=== PATIENT | female | born 1965 | race Caucasian/White ===

== ENCOUNTER → 2017-06-20 10:36 | Emergency (ER) | payer BC ==
[~2017-06-20 10:36] MED LIST: Acetaminophen TAB* 325 MG ONE; Acetaminophen TAB* 325 MG PO ONE; Amoxicillin/Clavulanate TAB* 875 MG PO ONE; Iohexol 300* (CONTRAST) 10 ML SDV IV ONE; NS 0.9% 1000 ML* 1,000 ML IV ONE; Ondansetron INJ* 2 MG/ML VIAL IV ONE; Ondansetron INJ* 2 MG/ML VIAL ONE
[2017-06-20 12:11] LABS: Hematocrit 41 % (35-47); Mean Corpuscular HGB Conc 34 g/dl (31-36); Mean Corpuscular Hemoglobin 30 pg (27-31); Mean Corpuscular Volume 87 fL (80-97); Mean Platelet Volume 8 um3 (7.4-10.4); Red Blood Count 4.67 10^6/ul (4.0-5.4); Red Cell Distribution Width 13 % (10.5-15)
[2017-06-20 12:38] LABS: Albumin 3.8 g/dL (3.2-5.2); BUN/Creatinine Ratio 23.3 (8-20); Calcium 8.8 mg/dL (8.6-10.3); EGFR African American 107.7 (>60); EGFR Non-African American 83.7 (>60); Globulin 2.9 g/dL (2-4); Magnesium 1.9 mg/dL (1.9-2.7); Potassium 3.7 mmol/L (3.5-5.0); Total Bilirubin 0.6 mg/dL (0.2-1.0); Total Protein 6.7 g/dL (6.4-8.9)
--- NOTE | 2017-06-20 13:35 | ED ---
Clayton Farmer Alfonso, scribed for Didi Jackson MD on 06/20/17 at 1204 . Abdominal Pain/Female - HPI Summary HPI Summary: This patient is a 52 year old F presenting to [facility] with a chief complaint of sharp LLQ abdominal pain since yesterday. The abdominal pain is better today. The patient rates the pain 5/10 in severity. Symptoms aggravated by movement, touch, and ambulation. Patient reports nausea, no vomiting. Report loss of appetite. Patient denies fever, constipation, vomiting, vaginal discharge, dysuria, and hematuria. Her last BM was formed without blood or melena yesterday. Conclusions from her colonoscopy on 01/17/17 reveal Two polyps ( removed), minimal diffuse diverticulosis, otherwise normal colonoscopy into the terminal ileum. Pt sates had an ovarian cyst with ovary resection - unknown which side Pt has has colon cancer polypectomy several years ago Patients medication reviewed this visit. - History of Current Complaint Chief Complaint: EDAbdPain Stated Complaint: LT ABD PAIN Time Seen by Provider: 06/20/17 11:42 Hx Obtained From: Patient, Medical Records Hx Last Menstrual Period: 12/27 Severity Initially: Mild Severity Currently: Moderate Pain Intensity: 5 Pain Scale Used: 0-10 Numeric Location: Discrete At: LLQ Radiates: No Character: Sharp, Other: - pressure Aggravating Factor(s): Movement Alleviating Factor(s): Nothing Associated Signs and Symptoms: Positive: Decreased Appetite, Nausea. Negative: Fever, Back Pain, Blood in Stool, Urinary Symptoms, Vomiting Allergies/Adverse Reactions: Allergies Allergy/AdvReac Type Severity Reaction Status Date / Time No Known Allergies Allergy Verified 12/24/13 08:44 PMH/Surg Hx/FS Hx/Imm Hx Previously Healthy: Yes Endocrine/Hematology History: Reports: Hx Thyroid Disease Denies: Hx Diabetes Cardiovascular History: Denies: Hx Congestive Heart Failure, Hx Hypertension History: Denies: Hx Dialysis, Hx Renal Disease - Cancer History Cancer Type, Location and Year: COLON CA-colon polyps removed age of 38 Hx Chemotherapy: No Hx Radiation Therapy: No - Surgical History Surgery Procedure, Year, and Place: RIGHT OOPHRECTOMY AND OVARIAN CYST REMOVAL Infectious Disease History: No Infectious Disease History: Denies: Traveled Outside the [place] in Last 30 Days - Family History Known Family History: Positive: Other - [place] - Social History Lives: With Family Alcohol Use: recovery x 7 years Substance Use Type: Reports: None 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 Smoking Status (MU): Light Every Day Tobacco Smoker Type: Cigarettes Amount Used/How Often: 3/4 PPD Length of Time of Smoking/Using Tobacco: 30 YEARS Have You Smoked in the Last Year: Yes Review of Systems Constitutional: Negative Cardiovascular: Negative Respiratory: Negative Positive: Abdominal Pain, Nausea Genitourinary: Negative Musculoskeletal: Negative Skin: Negative Neurological: Negative Psychological: Normal All Other Systems Reviewed And Are Negative: Yes Physical Exam Triage Information Reviewed: Yes Vital Signs On Initial Exam: Initial Vitals Temp Pulse Resp BP Pulse Ox 97.6 F 60 16 119/92 98 06/20/17 10:43 06/20/17 10:43 06/20/17 10:43 06/20/17 10:43 06/20/17 10:43 Vital Signs Reviewed: Yes Appearance: Positive: Well-Appearing, Pain Distress - discomfort with movement and palpatiion Skin: Positive: Warm, Skin Color Reflects Adequate Perfusion, Dry Eyes: Positive: Normal ENT: Positive: Hearing grossly normal Neck: Positive: Supple, Nontender, No Lymphadenopathy Respiratory/Lung Sounds: Positive: Clear to Auscultation, Breath Sounds Present , Decreased Breath Sounds Cardiovascular: Positive: Normal, RRR. Negative: Murmur Abdomen Description: Negative: Nontender, No Organomegaly, Soft Bowel Sounds: Positive: Present Musculoskeletal: Positive: Normal Neurological: Positive: Normal, Sensory/Motor Intact, Alert, Oriented to Person Place, Time Psychiatric: Positive: Normal AVPU Assessment: Alert - + TTP LLQ - no guarding, no rebound abd soft + BS Diagnostics - Vital Signs Vital Signs Temp Pulse Resp BP Pulse Ox 06/20/17 10:43 97.6 F 60 16 119/92 98 - Laboratory Lab Results: Lab Results 06/20/17 06/20/17 06/20/17 Range/Units 12:00 12:00 12:00 WBC 10.0 (3.5-10.8) 10^3/ul RBC 4.67 (4.0-5.4) 10^6/ul Hgb 14.0 (12.0-16.0) g/dl Hct 41 (35-47) % MCV 87 (80-97) fL MCH 30 (27-31) pg MCHC 34 (31-36) g/dl RDW 13 (10.5-15) % Plt Count 214 (150-450) 10^3/ul MPV 8 (7.4-10.4) um3 Neut % (Auto) 56.6 (38-83) % Lymph % (Auto) 29.3 (25-47) % Jack % (Auto) 9.9 H (1-9) % Eos % (Auto) 3.0 (0-6) % Baso % (Auto) 1.2 (0-2) % Absolute Neuts (auto) 5.7 (1.5-7.7) 10^3/ul Absolute Lymphs (auto) 2.9 (1.0-4.8) 10^3/ul Absolute Monos (auto) 1.0 H (0-0.8) 10^3/ul Absolute Eos (auto) 0.3 (0-0.6) 10^3/ul Absolute Basos (auto) 0.1 (0-0.2) 10^3/ul Absolute Nucleated RBC 0.01 10^3/ul Nucleated RBC % 0.1 Sodium 136 (133-145) mmol/L Potassium 3.7 (3.5-5.0) mmol/L Chloride 104 (101-111) mmol/L Carbon Dioxide 26 (22-32) mmol/L Anion Gap 6 (2-11) mmol/L BUN 17 (6-24) mg/dL Creatinine 0.73 (0.51-0.95) mg/dL Est GFR ( Amer) 107.7 (>60) Est GFR (Non-Af Amer) 83.7 (>60) BUN/Creatinine Ratio 23.3 H (8-20) Glucose 103 H (70-100) mg/dL Lactic Acid 1.6 (0.5-2.0) mmol/L Calcium 8.8 (8.6-10.3) mg/dL Magnesium 1.9 (1.9-2.7) mg/dL Total Bilirubin 0.60 (0.2-1.0) mg/dL AST 16 (13-39) U/L ALT 16 (7-52) U/L Alkaline Phosphatase 87 (34-104) U/L Total Protein 6.7 (6.4-8.9) g/dL Albumin 3.8 (3.2-5.2) g/dL Globulin 2.9 (2-4) g/dL Albumin/Globulin Ratio 1.3 (1-3) Lipase 27 (11.0-82.0) U/L Result Diagrams: 06/20/17 12:00 06/20/17 12:00 Lab Statement: Any lab studies that have been ordered have been reviewed, and results considered in the medical decision making process. - CT A/P CT Interpretation Completed By: Radiologist - INTERSTITIAL STRANDING ADJACENT TO THE PROXIMAL SIGMOID COLON MOST CONSISTENT WITH EPIPLOIC APPENDAGITIS LESS LIKELY DIVERTICULITIS. ED physician has reviewed this radiology report and agrees. Re-Evaluation - Re-Evaluation First Eval Re-Evaluation Time: 14:17 Change: Improved Comment: Nasuea controlled. She declines offer for pain medications at this time. She is drinking the PO contrast. Second Eval Re-Evaluation Time: 16:28 Comment: d/w surgery CT finding - no acute management. reviewed CT with patient and labs. Will culture urine. start Augmentin. pt will schedule f/u with PCP. return precautions discussed. motrin/apap. Pt comfortable and in agreement with plan Abdominal Pain Fem Course/Dx - Course Course Of Treatment: Pt presents wtih increased LLQ x 24 hours. Pain reproducible with touch and movement. Pt with diverticulosis on colonoscopy 2016. No h/o diverticulitis. Will check lab. urine. IVF. Pt declined analgesia. will give antiemetic CT scan - Diagnoses Provider Diagnoses: Epiploic appendagitis, UTI (urinary tract infection) Discharge - Discharge Plan Condition: Stable Disposition: HOME Prescriptions: Amoxicillin/Clavulanate TAB* [Augmentin TAB 875*] 875 mg PO BID #14 tab Patient Education Materials: Acute Abdominal Pain (ED) Referrals: Iman Candelaria MD [Primary Care Provider] - Additional Instructions: The CT scan today revealed you have epiploic appendagitis - this is caused by a small area of fat that did not have good blood flow - this is not dangerous and does not need any treatment other than pain control Your urine results suggests a bladder infection You have been started on antibiotics - take until gone - will likely cause diarrhea - okay to alternate ibuprofen (advil, motrin) and tylenol every 3hours as needed for pain. Take with food. Contact your doctor to schedule a follow-up appointment. call your doctor or return for fevers,vomiting, uncontrolled pain or other questions or concerns The documentation as recorded by the Clayton anne Alfonso accurately reflects the service I personally performed and the decisions made by me, Didi Jackson MD.
[2017-06-20 13:51] LABS: Urine Bacteria Absent (Absent); Urine Bilirubin Negative (Negative); Urine Glucose Negative (Negative); Urine Nitrite Negative (Negative)
[2017-06-20 15:25] VITALS: BP 120/87
--- NOTE | 2017-06-20 15:39 | RAD ---
INDICATION: Left lower quadrant abdominal pain. COMPARISON: Comparison is made with a prior CT of the abdomen and pelvis from January 10, 2015. TECHNIQUE: A CT scan of the abdomen and pelvis was performed with intravenous and oral contrast following intravenous injection of 88 ml of Omnipaque 300 nonionic contrast. Contiguous axial sections were obtained from the lung bases through the symphysis pubis. Images were reconstructed in the coronal and sagittal planes. FINDINGS: The lung bases are clear. No pleural effusion is present. The liver is normal in size. No significant focal hepatic abnormality is seen. No calcific gallstones are noted. The pancreas appears to be within normal limits. The spleen is normal in size there are several small subcentimeter hypodense splenic lesions which appear to be present on the prior study. The kidneys and adrenal glands are normal in size. No hydronephrosis is seen. No significant focal renal abnormality is seen. The aorta is normal in caliber and demonstrates homogeneous contrast opacification. No significant enlarged retroperitoneal lymph nodes are seen. The stomach, small and large bowel appear nondistended. The appendix is not visualized. There is moderate sigmoid diverticulosis. Adjacent to the anterior aspect of the proximal sigmoid colon there is focal stranding in the mesenteric fat without bowel wall thickening suggestive of epiploic appendagitis less likely diverticulitis. No wall thickening is present. The uterus is anteverted and normal in size. No free intraperitoneal air or fluid is seen. No significant focal osseous abnormality is seen. IMPRESSION: INTERSTITIAL STRANDING ADJACENT TO THE PROXIMAL SIGMOID COLON MOST CONSISTENT WITH EPIPLOIC APPENDAGITIS LESS LIKELY DIVERTICULITIS.
== END | disposition home or self-care (01) ==
LOC: ED 10:36
DX: R10.32 Left lower quadrant pain (principal); K63.89 Other specified diseases of intestine
CPT/HCPCS: 36415; 74177; 80053; 81003; 81015; 83605; 83690; 83735; 85025; 87086; 96374; 96376; 99282; A9270-GY; J2405; Q9967

== ENCOUNTER 2018-05-04 14:17 | Emergency (ER) | payer BC ==
--- NOTE | 2018-05-04 15:02 | ED ---
Substance Abuse/Use - HPI Summary HPI Summary: The pt is a 53 y/o female presenting to the [facility] c/o possible accidental ibuprofen overdose. Pt is coming from Dr. Candelaria's office where pt told Dr. Candelaria that since 05/02/18 she has been taking over the counter ibuprofen 800mg every four hours for low back pain, on the advice of a friend, such that she has taken 7600mg in 32 hrs. Pt relayed to Dr[address] Candelaria that she had tinnitus from this. Dr. Candelaria contacted [facility] poison control, and poison control advised that pt should come to the ED to be evaluated where she could have labs and a period of observation. Pt is not suicidal or homicidal, and has no psychiatric hx. She took 800mg of Ibuprofen starting 10:30am 2 days ago for back pain and took the last 4 pills at 17:30 yesterday. The non radiating back pain is intermittent and is currently rated 0/10 in intensity. She notes LOCK on L tenriism, numbness and ringing in the ears, nausea, dizziness, fatigue and forgetfulness but denies recent back injury, LE numbness and tingling, blurry vision, diplopia, and LE pain. Pt has no fever and no incontinence, and has had no spinal injections. Home Medications Medication Instructions Recorded Confirmed Type Levothyroxine TAB* [Synthroid TAB*] 125 mcg PO DAILY 05/04/18 05/04/18 History Simvastatin TAB(NF) [Zocor(NF)] 20 mg PO DAILY 05/04/18 05/04/18 History Initial Vital Signs Temp 98.0 F 05/04/18 14:23 Pulse 74 05/04/18 14:23 Resp 18 05/04/18 14:23 BP 139/98 05/04/18 14:23 Pulse Ox 99 05/04/18 14:23 - History Of Current Complaint Chief Complaint: EDOverdose Stated Complaint: POSS MEDICATION OD Hx Obtained From: Patient, Other: - Dr. Candelaria, [facility] poison control center ?: No Onset/Duration of Drug/ETOH Abuse: Days - 2 days Ingestion History: Type/Name Of Drug - ibuprofen, OTC, Amount Ingested - 7600mg in 32 hrs, Approximate Time Of Ingestion - last dose 05/03/18 at 1730pm Overdose Characteristics: Oral Severity Initially: Mild Severity Currently: Moderate Character: Other - physical symptoms, LOCK, tinnitus, nausea Aggravating Factor(s): Other - advice from a friend to try ibuprofen 800mg q 4 hrs for pain Alleviating Factor(s): Nothing Associated Signs And Symptoms: Nausea, Unintentional OTC, Other: - LOCK at theL tenriism, numbness and " ringing" in the ears, dizziness, forgetfulness, - Allergies/Home Medications Allergies/Adverse Reactions: Allergies Allergy/AdvReac Type Severity Reaction Status Date / Time No Known Allergies Allergy Verified 05/04/18 14:29 Home Medications: Home Medications Levothyroxine TAB* [Synthroid 125 MCG TAB*] 125 mcg PO DAILY 05/04/18 [History Confirmed 05/04/18] Simvastatin TAB(NF) [Zocor 20 MG (NF)] 20 mg PO DAILY 05/04/18 [History Confirmed 05/04/18] PMH/Surg Hx/FS Hx/Imm Hx Previously Healthy: No Endocrine/Hematology History: Reports: Hx Thyroid Disease Denies: Hx Diabetes Cardiovascular History: Denies: Hx Congestive Heart Failure, Hx Hypertension History: Denies: Hx Dialysis, Hx Renal Disease Musculoskeletal History: Reports: Other Musculoskeletal History - low back pain , no prior hx back pain - Cancer History Cancer Type, Location and Year: COLON CA-colon polyps removed age of 38 Hx Chemotherapy: No Hx Radiation Therapy: No - Surgical History Surgery Procedure, Year, and Place: RIGHT OOPHRECTOMY AND OVARIAN CYST REMOVAL Infectious Disease History: No Infectious Disease History: Denies: Traveled Outside the [place] in Last 30 Days - Family History Known Family History: Positive: Other - [place] - Social History Occupation: Employed Full-time - works for [employer], does not want to take narcotics Lives: Alone Alcohol Use: None Substance Use Type: Reports: None 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 Smoking Status (MU): Light Every Day Tobacco Smoker Type: Cigarettes Amount Used/How Often: 3/4 PPD Length of Time of Smoking/Using Tobacco: 30 YEARS Have You Smoked in the Last Year: Yes Review of Systems Constitutional: Other - Positive: Dizziness, forgetfulness Positive: Fatigue Negative: Blurred Vision, Diplopia Positive: Other - Positive: numbness and "ringing" in the ears Cardiovascular: Negative Respiratory: Negative Positive: Nausea Musculoskeletal: Negative - LE pain and numbness Positive: Other - low back pain Skin: Negative Positive: Headache Psychological: Normal All Other Systems Reviewed And Are Negative: Yes Physical Exam - Summary Physical Exam Summary: Appearance: Well-appearing, moderate pain distress, well-nourished Skin: Warm, color reflects adequate perfusion, dry Head: Normal Head/Face inspection, atraumatic Eyes: Conjunctiva clear ENT: Normal inspection, TM's clear, pharynx clear Neck: Supple, no nodes, no JVD Respiratory: Lungs clear, normal breath sounds, no respiratory distress Cardio: RRR, No murmur, pulses normal, brisk capillary refill Abdomen: Soft, nontender Bowel sounds: Present Musculoskeletal: Strength Intact/ROM intact, no calf tenderness, no edema. Psychological: Normal, not suicidal or homicidal Neuro: A&O x3, CN II-XII intact, motor function 5/5, sensation intact, cerebellar normal Triage Information Reviewed: Yes Vital Signs On Initial Exam: Initial Vitals Temp Pulse Resp BP Pulse Ox 98.0 F 74 18 139/98 99 05/04/18 14:23 05/04/18 14:23 05/04/18 14:23 05/04/18 14:23 05/04/18 14:23 Vital Signs Reviewed: Yes Diagnostics - Vital Signs Vital Signs Temp Pulse Resp BP Pulse Ox 05/04/18 14:43 62 12 156/100 100 05/04/18 14:42 66 99 05/04/18 14:23 98.0 F 74 18 139/98 99 - Laboratory Result Diagrams: 05/04/18 15:04 05/04/18 15:04 Lab Statement: Any lab studies that have been ordered have been reviewed, and results considered in the medical decision making process. - Radiology CXR Radiology Interpretation Completed By: Radiologist - IMPRESSION: No radiographic evidence for acute cardiopulmonary abnormality on this single AP view chest x-ray. The ED physician has reviewed this radiology report. - CT Lumbar CT CT Interpretation Completed By: Radiologist - IMPRESSION: 1. NO EVIDENCE FOR FRACTURE. 2. MILD TO MODERATE LUMBAR SPONDYLOSIS. The ED physician has reviewed this radiology report. Brain CT CT Interpretation Completed By: Radiologist - IMPRESSION: Normal CT of the brain. The Ed physician has reviewed this radiology report. - EKG 1455 Cardiac Rate: Bradycardia EKG Rhythm: Sinus Bradycardia ST Segment: Non-Specific Ectopy: None EKG Interpretation: nl AVIVCT, nl QTc no acute changes EKG Comparison: Other - no prior to compare Re-Evaluation - Re-Evaluation First Eval Re-Evaluation Time: 17:36 Change: Improved - Discussed the CT and lab results with the pt and recommended that she sees a physical therapist. Poison control has closed the case for any toxicity concern. The pt is ready to go home. Vitals: BP= 157/100; O2 Sat= 100 ; Pulse = 67 Course/Dx - Course Course Of Treatment: 53 yo F with accidental overdose of ibuprofen based on advice from a friend, for treatment of back pain, presented to Dr. Candelaria's office with symptoms including tinnitus. Dr. Candelaria spoke with poison control who recommended that if sxs included tinnitus, pt needed labs and observation to evaluate for toxicity of unintentional overdose. Pt's sxs included LOCK, and HTN, and with ibuprofen interference with platelets, CT brain was done to eval for poss intracerebral bleed or stroke. CT brain was normal. The back pain pt has is atraumatic and new for pt, so started with imaging by CT of her LS spine which shows spondylosis and degenerative changes. Pt does not have "red flag" signs of back pain such as cauda equina or epidural abscess so emergency MRI was not ordered. Labs showed no other evidence of ingestion, and renal function is normal. EKG showed normal QRS and QTc. Poison control closed case after observation, CT's and labs. Pt is advised maximum dose of ibuprofen is 800mg q6 and that this can be done only with food and for a short time. Pt is given a prescription for flexeril to try with ibuprofen and acetaminophen for pain. Pt will try some non medication therapies for her back pain, such as physical therapy and she will have definite follow up with Dr. Candelaria. - Diagnoses Differential Diagnosis/HQI/PQRI: Positive: Other - accidental overdose Provider Diagnoses: Accidental medication overdose, Adverse effects of medication, Spondylosis, Low back pain, Elevated BP without diagnosis of hypertension Discharge - Sign-Out/Discharge Documenting (check all that apply): Patient Departure - DC - Discharge Plan Condition: Stable Disposition: HOME Prescriptions: Cyclobenzaprine TAB* [Flexeril 10 MG TAB*] 10 mg PO TID PRN #30 tab PRN Reason: Pain Ibuprofen TAB* [Motrin TAB* 800 MG] 800 mg PO Q6H #20 tab Patient Education Materials: Hypothyroidism (ED), Acute Low Back Pain (ED) Referrals: Iman Candelaria MD [Primary Care Provider] - 2 Days Additional Instructions: You may take acetaminophen 1 gm ( 2 x 500mg) four times a day for pain. You may alternate this with ibuprofen. The maximum dose of ibuprofen is 800mg four times a day. Do not take additional over the counter naproxyn, advil, motrin if you are taking prescription ibuprofen. We prescribed cyclobenzaprine which is a muscle relaxant. You may take it three times a day as directed. Your labs showed that your TSH level was high, which may mean you are hypothyroid. You should talk this over with Dr. Candelaria, whether to increase your thyroid. We have given you a copy of your labs and CT scans and urine and xrays done today. Have definite follow up with Dr. Candelaria in the next 2-3 days. Return to the ER if you have new or worsening symptoms. - Billing Disposition and Condition Condition: STABLE Disposition: Home - Attestation Statements Document Initiated by Sharmila: Yes Documenting Scribe: Enedina Valencia Provider For Whom Sharmila is Documenting (Include Credential): Dr. Stephanie Joshua MD Scribe Attestation: Enedina Farmer scribed for Dr. Stephanie Joshua MD on 05/07/18 at 1233. Scribe Documentation Reviewed: Yes Provider Attestation: The documentation as recorded by the Enedina anne accurately reflects the service I personally performed and the decisions made by , Dr. Stephanie Joshua MD
[2018-05-04 15:13] LABS: ABS Basophils 0.1 10^3/ul (0-0.2); ABS Eosinophils 0.3 10^3/ul (0-0.6); ABS Lymphocytes 3.7 10^3/ul (1.0-4.8); ABS Neutrophils 5.5 10^3/ul (1.5-7.7); ABS Nucleated RBC 0 10^3/ul; Hematocrit 40 % (35-47); Hemoglobin 14.1 g/dl (12.0-16.0); Lymphocyte % 35.1 % (25-47); Mean Corpuscular HGB Conc 35 g/dl (31-36); Mean Corpuscular Hemoglobin 31 pg (27-31); Mean Corpuscular Volume 89 fL (80-97); Mean Platelet Volume 7.9 um3 (7.4-10.4); Nucleated Red Blood Cells % 0.3; Platelet Count 253 10^3/ul (150-450); Red Cell Distribution Width 13 % (10.5-15); White Blood Count 10.6 10^3/ul (3.5-10.8)
--- NOTE | 2018-05-04 15:27 | RAD ---
INDICATION: Headache and confusion COMPARISON: None. TECHNIQUE: Contiguous axial sections of the brain were obtained from the skull base to the vertex without contrast. FINDINGS: The ventricles, cisterns and sulci are within normal limits. The hall-white matter differentiation is adequately maintained and there is no sulcal effacement. No significant focal abnormality or mass effect is present. There is no evidence for intracranial hemorrhage. No significant focal osseous abnormality is present. The visualized portion of the paranasal sinuses appear clear. The mastoid air cells are well aerated bilaterally. IMPRESSION: Normal CT of the brain.
--- NOTE | 2018-05-04 15:35 | RAD ---
INDICATION: Low back pain. COMPARISON: There are no relevant prior studies available for comparison. TECHNIQUE: Contiguous axial sections were obtained beginning above the T12 vertebra and continuing through the L5-S1 disc space. Images were reconstructed in the sagittal and coronal planes. FINDINGS: VERTEBRA: The vertebra are in normal alignment. No fracture is seen. L1-L2: There is no evidence for significant spinal canal or neural foraminal narrowing. L2-L3: There is a mild broad-based disc bulge. There is mild spinal canal narrowing. There is mild neural foraminal narrowing on the left side. L3-L4: There is a mild broad-based disc bulge. There is mild spinal canal and mild bilateral neural foraminal narrowing. L4-L5: There is a mild broad-based disc bulge and mild to moderate hypertrophic changes within the facet joints. There is mild to moderate spinal canal narrowing. Neural foramen appear patent on both sides. L5-S1: There is a minimal broad-based disc bulge and moderate hypertrophic changes within the facet joints. No spinal canal or neural foraminal narrowing is seen. IMPRESSION: 1. NO EVIDENCE FOR FRACTURE. 2. MILD TO MODERATE LUMBAR SPONDYLOSIS.
[2018-05-04 15:41] LABS: EGFR Non-African American 70.9 (>60)
--- NOTE | 2018-05-04 15:58 | RAD ---
INDICATION: "Overdose" COMPARISON: None. TECHNIQUE: Single AP view of the chest was obtained. FINDINGS: The heart and mediastinum exhibit normal size and contour. The lungs are grossly clear. There is no evidence of a large pleural effusion. Visualized bones are normal for the patient's age. IMPRESSION: No radiographic evidence for acute cardiopulmonary abnormality on this single AP view chest x-ray.
[2018-05-04 16:05] LABS: Urine Appearance Clear; Urine Blood Negative (Negative); Urine Color Yellow; Urine Ketones Negative (Negative); Urine Protein Negative (Negative); Urine Red Blood Cell Trace(0-2/hpf) (Absent); Urine Specific Gravity 1.015 (1.010-1.030); Urine Urobilinogen Negative (Negative); Urine White Blood Cell 1+(6-10/hpf) (Absent)
[2018-05-04 17:53] VITALS: BP 124/96
== END 2018-05-04 18:09 | disposition home or self-care (01) ==
LOC: ED 14:17
DX: T39.311A Poisoning by propionic acid derivatives, accidental (unintentional), initial encounter (principal); M47.9 Spondylosis, unspecified; R03.0 Elevated blood-pressure reading, without diagnosis of hypertension; Y92.9 Unspecified place or not applicable
CPT/HCPCS: 36415; 70450; 71045; 72131; 80053; 80307; 80320; 80329; 81003; 81015; 82550; 83605; 84443; 85025; 87086; 93005; 99283; G0480

== ENCOUNTER → 2018-12-24 17:31 | Emergency (ER) | payer BC ==
[~2018-12-24 17:31] MED LIST changes: -Acetaminophen TAB* 325 MG ONE; -Acetaminophen TAB* 325 MG PO ONE; -Amoxicillin/Clavulanate TAB* 875 MG PO ONE; +Aspirin 81 mg CHEW TAB* 81 MG TAB.CHEW PO ONE; -Iohexol 300* (CONTRAST) 10 ML SDV IV ONE; -NS 0.9% 1000 ML* 1,000 ML IV ONE; +Nitroglycerin TAB 0.4 MG* 0.4 MG TAB SL ONE; -Ondansetron INJ* 2 MG/ML VIAL IV ONE; -Ondansetron INJ* 2 MG/ML VIAL ONE
--- NOTE | 2018-12-24 18:46 | ED ---
HPI Chest Pain - HPI Summary HPI Summary: A 53 y/o F presents to ED with c/o constant non-radiating, L-sided CP onset two days ago and still present. She describes the pain as "clenching," deep and tightness. She says it feels like anxiety "but without the other symptoms." She thinks it may be a reaction to Wellbutrin. Associated sx: mild SOB. She denies jaw pain, UE pain, shoulder pain, cough, pedal edema. She exercises every morning and has gone to work this week. Denies HTN. No aspirin today. Smoker, no ETOH. - History of Current Complaint Chief Complaint: EDChestPainROMI Time Seen by Provider: 12/24/18 18:16 Hx Obtained From: Patient Hx Last Menstrual Period: 12/27 Onset/Duration: Started Days Ago, Atraumatic, Still Present Timing: Constant Initial Severity: Moderate Current Severity: Mild Pain Intensity: 0 Pain Scale Used: 0-10 Numeric Chest Pain Location: Mid Sternal, Left Anterior Chest Pain Radiates: No Character: Tightness, Other: - deep, clenching Associated Signs and Symptoms: Positive: Shortness of Breath - mild, Other: - neg: jaw pain, UE pain, shoulder pain, cough, pedal edema. - Allergy/Home Medications Allergies/Adverse Reactions: Allergies Allergy/AdvReac Type Severity Reaction Status Date / Time No Known Allergies Allergy Verified 12/24/18 17:58 Home Medications: Home Medications Bupropion XL* [Wellbutrin XL *] 150 mg PO DAILY 12/24/18 [History Confirmed 08/03] PMH/Surg Hx/FS Hx/Imm Hx Previously Healthy: No Endocrine/Hematology History: Reports: Hx Thyroid Disease Denies: Hx Diabetes Cardiovascular History: Denies: Hx Congestive Heart Failure, Hx Hypertension History: Denies: Hx Dialysis, Hx Renal Disease Musculoskeletal History: Reports: Other Musculoskeletal History - low back pain , no prior hx back pain - Cancer History Cancer Type, Location and Year: COLON CA-colon polyps removed age of 38 Hx Chemotherapy: No Hx Radiation Therapy: No - Surgical History Surgery Procedure, Year, and Place: RIGHT OOPHRECTOMY AND OVARIAN CYST REMOVAL Infectious Disease History: No Infectious Disease History: Denies: Traveled Outside the [place] in Last 30 Days - Family History Known Family History: Positive: Other - CA Negative: Cardiac Disease Family History: pos: stroke - Social History Occupation: Employed Full-time Lives: With Family Alcohol Use: None Hx Substance Use: No Substance Use Type: Reports: None 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 Negative: Cough Negative: Abdominal Pain, Vomiting, Nausea Negative: dysuria, hematuria Negative: Myalgia, Edema, Other - neg: jaw pain Negative: Rash Neurological: Other - neg: dizziness All Other Systems Reviewed And Are Negative: Yes Physical Exam - Summary Physical Exam Summary: Constitutional: Well-developed, Well-nourished, Alert. (-) Distressed Skin: Warm, Dry HENT: Normocephalic; Atraumatic Eyes: Conjunctiva normal Neck: Musculoskeletal ROM normal neck. (-) JVD, (-) Stridor, (-) Tracheal deviation Cardio: Rhythm regular, rate normal, Heart sounds normal; Intact distal pulses; The pedal pulses are 2+ and symmetric. Radial pulses are 2+ and symmetric. (-) Murmur Pulmonary/Chest wall: Effort normal. (-) Respiratory distress, (-) Wheezes, (-) Rales Abd: Soft, (-) epigastric tenderness, (-) Distension, (-) Guarding, (-) Rebound Musculoskeletal: (-) Edema. Costochondral tenderness at the Left 3rd and 4th costochondral junction. Lymph: (-) Cervical adenopathy Neuro: Alert, Oriented x3 Psych: Mood and affect Normal Triage Information Reviewed: Yes Vital Signs On Initial Exam: Initial Vitals Temp Pulse Resp BP Pulse Ox 98.4 F 76 16 136/89 95 12/24/18 17:51 12/24/18 17:51 12/24/18 17:51 12/24/18 17:51 12/24/18 17:51 Vital Signs Reviewed: Yes Diagnostics - Vital Signs Vital Signs Temp Pulse Resp BP Pulse Ox 12/24/18 17:51 98.4 F 76 16 136/89 95 - Laboratory Result Diagrams: 12/24/18 19:12 12/24/18 19:11 Lab Statement: Any lab studies that have been ordered have been reviewed, and results considered in the medical decision making process. - Radiology CXR Radiology Interpretation Completed By: ED Physician Summary of Radiographic Findings: NAD. - EKG 1825 Cardiac Rate: NL - 62 bpm EKG Rhythm: Sinus Rhythm Summary of EKG Findings: New T-wave inversions in V2 and V3. Old Q-waves in II and III. No STEMI. Compared to previous EKG on 05/04/18. Re-Evaluation - Re-Evaluation First Eval Re-Evaluation Time: 21:57 Change: Unchanged Comment: Discussed radiology and laboratory results with pt. Instructed patient to get a cardiac stress test within the next few days. She agrees to discharge plan. Chest Pain Course/Dx - Course Course Of Treatment: Pt is a 53 y/o F presenting with constant non-radiating, L- sided CP onset two days ago and still present. Associated sx: mild SOB. Smoker, no cardiac FHx. CXR shows no acute disease. EKG shows NSR and new T-wave inversions in V2 and V3, old Q-waves in II and III. No STEMI. As compared to previous EKG on 05/04/18. Pt will be signed-out to Dr. Delacruz at shift change pending labs, trop. - Diagnoses Provider Diagnoses: Atypical chest pain Discharge - Sign-Out/Discharge Documenting (check all that apply): Sign-Out Patient Signing out patient TO: Angelo Delacruz - pending labs, 2nd trop Patient Received Moderate/Deep Sedation with Procedure: No - Discharge Plan Condition: Improved Disposition: HOME Patient Education Materials: Chest Pain (ED) Referrals: Arnulfo Meek DO [Medical Doctor] - Callie Gimenez MD [Primary Care Provider] - (1-2 days) Additional Instructions: Follow up with cardiology to get a cardiac stress test. Call for an appointment tomorrow. PLEASE RETURN TO THE ED IMMEDIATELY FOR WORSENING OR CONCERNING SYMPTOMS. - Attestation Statements Document Initiated by Scribe: Yes Documenting Scribe: Lauren Pinedo Provider For Whom Scribe is Documenting (Include Credential): Dr. Lenny Alvarado MD Scribe Attestation: I, Lauren Pinedo, scribed for Dr. Lenny Alvarado MD on 12/24/18 at 2205.
[2018-12-24 19:19] LABS: ABS Basophils 0.1 10^3/ul (0-0.2); ABS Eosinophils 0.4 10^3/ul (0-0.6); ABS Lymphocytes 4.1 10^3/ul (1.0-4.8); ABS Monocytes 1.1 10^3/ul (0-0.8); ABS Neutrophils 5.8 10^3/ul (1.5-7.7); ABS Nucleated RBC 0 10^3/ul; Eosinophil % 3.3 %; Hematocrit 41 % (33-41); Hemoglobin 14.1 g/dL (12.0-16.0); Lymphocyte % 35.6 %; Mean Corpuscular HGB Conc 34 g/dL (31-36); Mean Corpuscular Hemoglobin 30 pg (27-31); Mean Corpuscular Volume 89 fL (80-97); Mean Platelet Volume 8.5 fL (7.4-10.4); Nucleated Red Blood Cells % 0; Platelet Count 246 10^3/uL (150-450); Red Blood Count 4.65 10^6 /uL (3.70-4.87); Red Cell Distribution Width 13 % (10.5-15); White Blood Count 11.5 10^3/uL (3.5-10.8)
[2018-12-24 19:37] LABS: Troponin I 0.01 ng/mL (<0.04)
[2018-12-24 19:41] LABS: Albumin/Globulin Ratio 1.4 (1-3); BUN/Creatinine Ratio 20.8 (8-20); Calcium 9.2 mg/dL (8.6-10.3); EGFR African American 102.5 (>60); EGFR Non-African American 84.7 (>60); Globulin 2.8 g/dL (2-4); Potassium 4.2 mmol/L (3.5-5.0); Total Bilirubin 0.2 mg/dL (0.2-1.0); Total Protein 6.8 g/dL (6.4-8.9)
--- NOTE | 2018-12-24 19:46 | ED ---
Progress - Progress Note Progress Note: Receiving sign out from Dr. Alvarado at shift change, pending lab results and second troponin. Pt's condition has been stable. She will be discharged with a final dx of atypical CP. Re-Evaluation - Re-Evaluation First Eval Re-Evaluation Time: 21:57 Change: Unchanged Comment: Discussed radiology and laboratory results with pt. Instructed patient to get a cardiac stress test within the next few days. She agrees to discharge plan. Course/Dx - Course Course Of Treatment: Received sign out from Dr. Alvarado pending second troponin. Pt is a 53 y/o female who presents with left anterior CP and anxiety for 2 days. She had two negative troponins. EKG changes were very subtle. A CXR was negative. Pt has no cardiac risk factors. In the course she was given ASA and NTG. Pt will be discharged with a final dx of atypical CP. She is instructed to follow up with cardiology tomorrow for an outpatient stress test. Pt is agreeable with this plan. - Diagnoses Provider Diagnoses: Atypical chest pain Discharge - Sign-Out/Discharge Documenting (check all that apply): Patient Departure - Discharge, Receiving Sign-Out Receiving patient FROM: Lenny Alvarado Patient Received Moderate/Deep Sedation with Procedure: No - Discharge Plan Condition: Improved Disposition: HOME Patient Education Materials: Chest Pain (ED) Referrals: Arnulfo Meek DO [Medical Doctor] - Callie Gimenez MD [Primary Care Provider] - (1-2 days) Additional Instructions: Follow up with cardiology to get a cardiac stress test. Call for an appointment tomorrow. PLEASE RETURN TO THE ED IMMEDIATELY FOR WORSENING OR CONCERNING SYMPTOMS. - Billing Disposition and Condition Condition: IMPROVED Disposition: Home - Attestation Statements Document Initiated by Samiribe: Yes Documenting Scribe: Herminia Faria Provider For Whom Sharmila is Documenting (Include Credential): Angelo Delacruz MD Scribe Attestation: Herminia Farmer, marisoled for Angelo Delacruz MD on 12/25/18 at 0618. Scribe Documentation Reviewed: Yes Provider Attestation: The documentation as recorded by the Herminia anne accurately reflects the service I personally performed and the decisions made by me, Angelo Delacruz MD Status of Scribe Document: Viewed
[2018-12-24 22:30] VITALS: BP 143/97
== END | disposition home or self-care (01) ==
LOC: ED 17:31
DX: R07.89 Other chest pain (principal); E07.9 Disorder of thyroid, unspecified; F17.210 Nicotine dependence, cigarettes, uncomplicated; R94.31 Abnormal electrocardiogram [ECG] [EKG]; Z85.038 Personal history of other malignant neoplasm of large intestine
CPT/HCPCS: 36415; 71045; 80053; 83605; 84484; 85025; 85379; 93005; 99282; A9270-GY

== ENCOUNTER 2018-12-25 14:05 | Emergency (ER) | payer BC ==
--- NOTE | 2018-12-25 14:53 | ED ---
HPI Chest Pain - HPI Summary HPI Summary: A 57 y/o female presents to [facility] with a chief complaint of chest pain since 06/03. She also c/o SOB and sweating. She does not think that her SOB worsens upon exertion. She denies N/V, abdominal pain, or swelling in her legs. At triage she rated her pain as an 8/10 in severity. She describes her pain as tightness. She reports that she is going to have an esophageal check. She denies any hospitalizations or travelling in the last three months. She thinks that she may just be nervous. She is a smoker. She started Wellbutrin six weeks ago. - History of Current Complaint Chief Complaint: EDChestPainROMI Time Seen by Provider: 12/25/18 14:32 Hx Obtained From: Patient Hx Last Menstrual Period: 12/27 Onset/Duration: Started Days Ago, Still Present Timing: Constant, Lasting Days Initial Severity: Severe Current Severity: Severe Pain Intensity: 8 Pain Scale Used: 0-10 Numeric Chest Pain Location: Diffuse Chest Pain Radiates: No Character: Tightness Aggravating Factor(s): Nothing Alleviating Factor(s): Nothing Associated Signs and Symptoms: Positive: Shortness of Breath. Negative: Fever, Nausea, Abdominal Pain, Vomiting, Edema - Allergy/Home Medications Allergies/Adverse Reactions: Allergies Allergy/AdvReac Type Severity Reaction Status Date / Time No Known Allergies Allergy Verified 12/25/18 14:13 PMH/Surg Hx/FS Hx/Imm Hx Endocrine/Hematology History: Reports: Hx Thyroid Disease Denies: Hx Diabetes Cardiovascular History: Denies: Hx Congestive Heart Failure, Hx Hypertension History: Denies: Hx Dialysis, Hx Renal Disease Musculoskeletal History: Reports: Other Musculoskeletal History - low back pain , no prior hx back pain - Cancer History Cancer Type, Location and Year: COLON CA-colon polyps removed age of 38 Hx Chemotherapy: No Hx Radiation Therapy: No - Surgical History Surgery Procedure, Year, and Place: RIGHT OOPHRECTOMY AND OVARIAN CYST REMOVAL Infectious Disease History: No Infectious Disease History: Denies: Traveled Outside the [place] in Last 30 Days - Family History Known Family History: Positive: Other - CA Negative: Cardiac Disease Family History: pos: stroke - Social History Alcohol Use: None Hx Substance Use: No Substance Use Type: Reports: None 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 Negative: Fever Positive: Chest Pain Positive: Shortness Of Breath Positive: Abdominal Pain. Negative: Vomiting, Nausea Negative: Edema All Other Systems Reviewed And Are Negative: Yes Physical Exam - Summary Physical Exam Summary: Constitutional: Well-developed, Well-nourished, Alert. (-) Distressed Skin: Warm, Dry HENT: Normocephalic; Atraumatic Eyes: Conjunctiva normal Neck: Musculoskeletal ROM normal neck. (-) JVD, (-) Stridor, (-) Tracheal deviation Cardio: Rhythm regular, rate normal, Heart sounds normal; Intact distal pulses; The pedal pulses are 2+ and symmetric. Radial pulses are 2+ and symmetric. (-) Murmur Pulmonary/Chest wall: Reproducible chest wall tenderness between 4th and 5th ribs on left side. (-) Respiratory distress, (-) Wheezes, (-) Rales Abd: Soft, (-) tenderness, (-) Distension, (-) Guarding, (-) Rebound Musculoskeletal: (-) Edema Lymph: (-) Cervical adenopathy Neuro: Alert, Oriented x3 Psych: Mood and affect Normal Triage Information Reviewed: Yes Vital Signs On Initial Exam: Initial Vitals Temp Pulse Resp BP Pulse Ox 97.8 F 80 18 115/85 96 12/25/18 14:14 12/25/18 14:14 12/25/18 14:14 12/25/18 14:14 12/25/18 14:14 Vital Signs Reviewed: Yes Diagnostics - Vital Signs Vital Signs Temp Pulse Resp BP Pulse Ox 12/25/18 14:46 97 12/25/18 14:14 97.8 F 80 18 115/85 96 - Laboratory Result Diagrams: 12/25/18 14:59 12/25/18 14:59 Lab Statement: Any lab studies that have been ordered have been reviewed, and results considered in the medical decision making process. - EKG 14:45 Cardiac Rate: NL - 68 bpm EKG Rhythm: Sinus Rhythm Summary of EKG Findings: Normal sinus rhythm at 68 bpm, normal HI, normal QRS, normal QTc, normal axis, normal ST, normal T-waves, nonspecific EKG. Re-Evaluation - Re-Evaluation First Eval Re-Evaluation Time: 17:00 Change: Improved Comment: Patient reports feeling much better. Chest Pain Course/Dx - Course Course Of Treatment: A 57 y/o female presents to [facility] with a chief complaint of chest pain since 12/22/18. She also c/o SOB and sweating. The physical exam revealed reproducible chest wall tenderness between 4th and 5th ribs on left side. EKG at 14:45 revealed Normal sinus rhythm at 68 bpm, normal HI, normal QRS, normal QTc, normal axis, normal ST, normal T-waves, nonspecific EKG. Blood work and chemistries obtained and are WNL. In the ED course the patient was given Lidocaine PO and Maalox Plus PO. The patient will be discharged home with a prescription for Flexeril and follow up with Dr. Watkins. The patient is agreeable with this plan. - Diagnoses Provider Diagnoses: Esophagitis, Chest wall pain Discharge - Sign-Out/Discharge Documenting (check all that apply): Patient Departure - DC Patient Received Moderate/Deep Sedation with Procedure: No - Discharge Plan Condition: Improved Disposition: HOME Prescriptions: Cyclobenzaprine TAB* [Flexeril 10 MG TAB*] 10 mg PO TID PRN #15 tab PRN Reason: pain Famotidine TAB* [Pepcid 20 MG TAB*] 20 mg PO BID #30 tab Pantoprazole TAB (NF) [Protonix TAB (NF)] 20 mg PO DAILY #30 tab Patient Education Materials: Chest Pain (ED), Diet for Stomach Ulcers and Gastritis (ED), Costochondritis (ED), Esophagitis (ED) Print Language: PUERT[place] RICAN Referrals: Hola Griffith DO [Doctor of Osteopathy] - Callie Gimenez MD [Primary Care Provider] - Faraz Watkins MD [Medical Doctor] - Additional Instructions: A bland diet is recommended. - Billing Disposition and Condition Condition: IMPROVED Disposition: Home - Attestation Statements Document Initiated by Scribe: Yes Documenting Scribe: Ace Churchill Provider For Whom Scribe is Documenting (Include Credential): Deborah Mast MD Scribe Attestation: Ace Farmer, scribed for Deborah Briones MD on 12/25/18 at 2242. Scribe Documentation Reviewed: Yes Provider Attestation: The documentation as recorded by the scribe, Ace Churchill accurately reflects the service I personally performed and the decisions made by me, Deborah Briones MD Status of Scribe Document: Viewed
[2018-12-25 15:06] LABS: ABS Basophils 0 10^3/ul (0-0.2); ABS Eosinophils 0.3 10^3/ul (0-0.6); ABS Lymphocytes 3.4 10^3/ul (1.0-4.8); ABS Monocytes 0.9 10^3/ul (0-0.8); ABS Neutrophils 5.5 10^3/ul (1.5-7.7); ABS Nucleated RBC 0 10^3/ul; Eosinophil % 3.1 %; Hematocrit 44 % (33-41); Lymphocyte % 33.5 %; Mean Corpuscular HGB Conc 35 g/dL (31-36); Mean Corpuscular Hemoglobin 31 pg (27-31); Mean Corpuscular Volume 89 fL (80-97); Mean Platelet Volume 8.1 fL (7.4-10.4); Nucleated Red Blood Cells % 0; Platelet Count 267 10^3/uL (150-450); Red Blood Count 4.91 10^6 /uL (3.70-4.87); Red Cell Distribution Width 13 % (10.5-15); White Blood Count 10.2 10^3/uL (3.5-10.8)
[2018-12-25 15:27] LABS: Albumin/Globulin Ratio 1.3 (1-3); Calcium 9.2 mg/dL (8.6-10.3); EGFR African American 65.6 (>60); EGFR Non-African American 54.2 (>60); Potassium 4.6 mmol/L (3.5-5.0); Total Bilirubin 0.3 mg/dL (0.2-1.0)
[2018-12-25] MEDS ORDERED: Al Hydrox/Mg Hydrox/Simet LIQ* 30 ML UDC PO ONE (15:37)
[2018-12-25] MEDS ORDERED: Lidocaine 2% VISCOUS* 15 ML UDC PO ONE (15:37)
[2018-12-25 17:15] LABS: C Reactive Protein 1.18 mg/L (<8.01)
[2018-12-25 17:38] VITALS: BP 126/80
== END 2018-12-25 17:37 | disposition home or self-care (01) ==
LOC: ED 14:05
DX: K20.9 Esophagitis, unspecified (principal); R07.89 Other chest pain; R94.31 Abnormal electrocardiogram [ECG] [EKG]; E07.9 Disorder of thyroid, unspecified; F17.210 Nicotine dependence, cigarettes, uncomplicated; Z85.038 Personal history of other malignant neoplasm of large intestine
CPT/HCPCS: 36415; 80053; 83605; 83735; 83880; 84484; 85025; 86140; 93005; 99283; A9270-GY

== ENCOUNTER 2021-07-13 18:13 | Inpatient (IN) ==
[2021-07-13] MEDS ORDERED: NS 0.9% 1000 ml BAG 1,000 ML IV ONE (18:20)
[2021-07-13] MEDS ORDERED: Norepinephrine 16MCG/ML IVPRE 4,000 MCG/250 ML BAG IV ONE (18:20)
[2021-07-13] MEDS ORDERED: Lactated Ringers 1000 ml BAG 1,000 ML IV ONE (18:23)
[2021-07-13] MEDS ORDERED: Propofol 10 mg/ml 100 ML BTL 100 ML ONE (18:32)
[2021-07-13 18:39] LABS: Hematocrit 46 % (35-47); Hemoglobin 14.7 g/dL (12.0-16.0); Mean Corpuscular HGB Conc 32 g/dL (31-36); Mean Corpuscular Hemoglobin 32 pg (27-31); Mean Corpuscular Volume 99 fL (80-97); Platelet Count 148 10^3/uL (150-450); Red Blood Count 4.67 10^6 /uL (3.70-4.87); Red Cell Distribution Width 15 % (10-15); White Blood Count 14.2 10^3/uL (3.5-10.8)
[2021-07-13] MEDS ORDERED: Dextrose 50% Syringe 50 ml 25 GM/50 ML SYRINGE ONE (18:52)
[2021-07-13] MEDS ORDERED: Propofol 10 mg/ml 100 ML BTL 100 ML IV SCH ×2 (18:56→22:00)
[2021-07-13] MEDS ORDERED: Dextrose 50% Syringe 50 ml 25 GM/50 ML SYRINGE IV PUSH ONE (18:56)
[2021-07-13 18:57] LABS: Albumin 3.5 g/dL (3.2-5.2); Albumin/Globulin Ratio 1.3 (1-3); Alkaline Phosphatase 119 U/L (35-149); Blood Urea Nitrogen 25 mg/dL (6-24); Calcium 8.1 mg/dL (8.6-10.3); Chloride 108 mmol/L (101-111); Globulin 2.6 g/dL (2-4); Glucose 51 mg/dL (70-100); Sodium 143 mmol/L (135-145); Total Protein 6.1 g/dL (6.4-8.9)
[2021-07-13 19:00] LABS: Potassium 5.1 mmol/L (3.5-5.0)
[2021-07-13 19:01] LABS: Anion Gap 22 mmol/L (2-11); CO2 Carbon Dioxide 13 mmol/L (22-32); Troponin I 0.18 ng/mL (<0.03)
[2021-07-13 19:16] LABS: ALT 2316 U/L (7-52); AST 1657 U/L (13-39)
[2021-07-13 19:19] LABS: ABS Basophils 0.1 10^3/ul (0-0.2); ABS Lymphocytes 4.7 10^3/ul (1.0-4.8); ABS Monocytes 0.9 10^3/ul (0-0.8); ABS Neutrophils 8.3 10^3/ul (1.5-7.7); Eosinophil % 0.3 %; Lymphocyte % 33.5 %; Nucleated Red Blood Cells % 0.3
[2021-07-13 19:28] LABS: PCO2 Arterial 57 mmHg (35-45); PO2 Arterial 369 mmHg (80-100)
[2021-07-13] MEDS ORDERED: Hydrocortisone INJ 250 MG VIAL IV ONE (19:35)
[2021-07-13] MEDS ORDERED: Vancomycin 1,500 MG in NS 0.9% 250 ml 250 ML IVPB ONE (19:36)
[2021-07-13] MEDS ORDERED: Piperacillin/Tazobac ADVAN 3.375 GM in NS 0.9% 100 ml BAG 100 ML IV ONE (19:36)
[2021-07-13] MEDS ORDERED: Vasopressin 100 UNITS in D5W 250 ml BAG 245 ML IV SCH ×2 (19:45→21:30)
[2021-07-13 19:54] LABS: Acetaminophen < 15 mcg/mL; Alcohol, S < 13 mg/dL (<13); Salicylate < 2.50 mg/dL (<30)
[2021-07-13] MEDS ORDERED: Norepinephrine 16MCG/ML IVPRE 4,000 MCG/250 ML BAG IV SCH (20:00)
[2021-07-13 20:32] LABS: Creatine Kinase 2262 U/L (10-223)
[2021-07-13 20:33] LABS: TSH Ultra Thyroid Stim Horm 71.98 mcIU/mL (0.34-5.60)
[2021-07-13 21:13] LABS: Rapid COVID-19 Molecular Undetected (Undetected)
[2021-07-13 21:36] LABS: Total T3 110 ng/dL (87-178)
[2021-07-13] MEDS ORDERED: Sodium Bicarbonate 8.4% SYR 50 ml SYRINGE IV ONE (21:39)
[2021-07-13 21:42] LABS: Free T4 0.63 ng/dL (0.61-1.12)
[2021-07-13 21:45] LABS: Blood Urea Nitrogen 28 mg/dL (6-24); CO2 Carbon Dioxide 17 mmol/L (22-32); Calcium 7.2 mg/dL (8.6-10.3); Chloride 108 mmol/L (101-111); Glucose 133 mg/dL (70-100); Sodium 140 mmol/L (135-145)
[2021-07-13] MEDS ORDERED: Norepinephrine IV 4 MG in NS 0.9% 250 ml 246 ML IVPB SCH (22:00)
[2021-07-13] MEDS ORDERED: Sodium Bicarb 8.4% Vial 50 ML 150 MEQ in D5W 1000 ml BAG 850 ML IV SCH (22:00)
[2021-07-13 22:03] LABS: Anion Gap 15 mmol/L (2-11)
[2021-07-13] MEDS: KCL 20 MEQ/100 ML IVPREMIX 20 MEQ/100 ML BAG IV SCH (22:12)
[2021-07-13] MEDS: cefTRIAXone 1 gm/50 mL NS BAG 1 GM/50 ML BAG IVPB SCH (22:43)
[2021-07-13] MEDS: Hydrocortisone INJ 100 MG/2ML 2 ML VIAL IV SCH (22:46)
[2021-07-14] LABS: Troponin I 0.58 ng/mL (<0.03)
[2021-07-14 00:09] LABS: CO2 Carbon Dioxide 28 mmol/L (22-32); Calcium 6.9 mg/dL (8.6-10.3); Chloride 106 mmol/L (101-111); Sodium 144 mmol/L (135-145)
[2021-07-14 00:14] LABS: Blood Urea Nitrogen 31 mg/dL (6-24); Glucose 129 mg/dL (70-100)
[2021-07-14 00:18] LABS: Anion Gap 10 mmol/L (2-11)
[2021-07-14 00:39] LABS: PCO2 Arterial 58 mmHg (35-45); PO2 Arterial 98 mmHg (80-100)
[2021-07-14 01:09] LABS: Urine Benzodiazepine Screen None Detected (None Detect); Urine Cannabinoids Screen None Detected (None Detect); Urine Opiates Screen None Detected (None Detect)
[2021-07-14 01:13] LABS: Urine Appearance Turbid; Urine Bilirubin Negative (Negative); Urine Blood 3+ (Negative); Urine Color Yellow; Urine Glucose Negative (Negative); Urine Ketones Negative (Negative); Urine Nitrite Negative (Negative); Urine Protein 2+(100 mg/dL) (Negative); Urine Specific Gravity 1.006 (1.002-1.030); Urine Urobilinogen Negative (Negative)
[2021-07-14] MEDS ORDERED: Dextrose 50% Syringe 50 ml 25 GM/50 ML SYRINGE IV PUSH PRN (01:27)
[2021-07-14] MEDS ORDERED: CALCIUM GLUCONATE 1GM/50ML NS 1 GM/50 ML BAG IV ONE (01:27)
[2021-07-14] MEDS ORDERED: Dextrose 50% Syringe 50 ml 25 GM/50 ML SYRINGE IV PUSH ONE (01:27)
[2021-07-14] MEDS ORDERED: Sodium Bicarbonate 8.4% SYR 50 ml SYRINGE IV ONE (01:27)
[2021-07-14 01:28] LABS: Albumin 3.3 g/dL (3.2-5.2); Indirect Bilirubin 0.4 mg/dL (0.3-1.0); Potassium Redraw 7.2 mmol/L (3.5-5.0)
[2021-07-14] MEDS: KCL 20 MEQ/100 ML IVPREMIX 20 MEQ/100 ML BAG IV SCH (01:33)
[2021-07-14 01:34] LABS: Albumin/Globulin Ratio 1.6 (1-3); Alkaline Phosphatase 113 U/L (35-149); Globulin 2.1 g/dL (2-4); Total Protein 5.4 g/dL (6.4-8.9)
[2021-07-14 01:38] LABS: Urine Amorphous Crystals Present (Absent); Urine Bacteria Absent (Absent); Urine Red Blood Cell Trace(0-2/hpf) (Absent); Urine Squamous Epithelial Cell Present (Absent); Urine White Blood Cell Trace(0-5/hpf) (Absent)
[2021-07-14 01:55] LABS: ALT 3203 U/L (7-52); AST 5206 U/L (13-39); Creatine Kinase 8751 U/L (10-223)
[2021-07-14] MEDS: Pantoprazole VIAL 40 MG VIAL IV SCH ×2 (02:38→19:14)
[2021-07-14] MEDS: Chlorhexidine MOUTHWASH 0.12% 15 ML UDC TOPICAL SCH ×6 (02:38→21:52)
[2021-07-14] MEDS: Lactulose 30 ml UDC NG TUBE SCH ×5 (02:38→22:06)
[2021-07-14] MEDS: Azithromycin 500 mg/250 ml NS 500 MG/250 ML BAG IVPB SCH ×2 (02:55→20:08)
[2021-07-14] MEDS: metroNIDAZOLE IV 500 MG/100ML 500 MG/100 ML BAG IVPB SCH ×4 (02:57→23:22)
[2021-07-14] MEDS: Norepinephrine IV 4 MG in NS 0.9% 250 ml 4,000 MCG/246 ML IV.FLUID IV SCH ×4 (03:28→22:04)
[2021-07-14 04:20] LABS: PCO2 Arterial 54 mmHg (35-45); PO2 Arterial 74 mmHg (80-100)
[2021-07-14 04:41] LABS: Hematocrit 41 % (35-47); Hemoglobin 13.8 g/dL (12.0-16.0); Mean Corpuscular HGB Conc 34 g/dL (31-36); Mean Corpuscular Hemoglobin 31 pg (27-31); Mean Corpuscular Volume 92 fL (80-97); Mean Platelet Volume 8.5 fL (7.4-10.4); Platelet Count 162 10^3/uL (150-450); Red Blood Count 4.45 10^6 /uL (3.70-4.87); Red Cell Distribution Width 14 % (10-15); White Blood Count 25.4 10^3/uL (3.5-10.8)
[2021-07-14 04:47] LABS: ABS Basophils 0.1 10^3/ul (0-0.2); ABS Lymphocytes 3.9 10^3/ul (1.0-4.8); ABS Monocytes 1.5 10^3/ul (0-0.8); ABS Neutrophils 19.8 10^3/ul (1.5-7.7); Lymphocyte % 15.6 %; Nucleated Red Blood Cells % 0.1
[2021-07-14 04:51] LABS: INR 1.41 (0.86-1.15)
[2021-07-14 04:59] LABS: Albumin 2.9 g/dL (3.2-5.2); Albumin/Globulin Ratio 1.3 (1-3); Calcium 6.6 mg/dL (8.6-10.3); Globulin 2.2 g/dL (2-4); Potassium 4.6 mmol/L (3.5-5.0); Total Bilirubin 0.7 mg/dL (0.2-1.0); Total Protein 5.1 g/dL (6.4-8.9)
[2021-07-14] MEDS ORDERED: Levothyroxine 100 MCG/5 ML VIAL IV SCH (06:00)
[2021-07-14] MEDS: Levothyroxine 100 MCG/5 ML VIAL IV SCH (06:14)
[2021-07-14] MEDS: Hydrocortisone INJ 100 MG/2ML 2 ML VIAL IV SCH ×3 (06:15→20:08)
[2021-07-14 07:07] LABS: Troponin I 2.36 ng/mL (<0.03)
[2021-07-14] MEDS ORDERED: Patiromer POWDER 8.4 GM PAK PO SCH (09:00)
[2021-07-14 10:27] LABS: Magnesium 2.1 mg/dL (1.9-2.7)
[2021-07-14 10:50] LABS: Urine Appearance Turbid; Urine Bilirubin Negative (Negative); Urine Blood 3+ (Negative); Urine Color Amber; Urine Glucose 1+(50 mg/dL) (Negative); Urine Ketones Trace (Negative); Urine Nitrite Negative (Negative); Urine Protein 2+(100 mg/dL) (Negative); Urine Urobilinogen Negative (Negative)
[2021-07-14 10:54] LABS: Rapid COVID-19 Molecular Undetected (Undetected)
[2021-07-14 10:58] LABS: Urine Creatinine Concentration 109.07 mg/dL
[2021-07-14 11:02] LABS: Urine Amorphous Crystals Present (Absent); Urine Bacteria 1+ (Absent); Urine Red Blood Cell 2+(6-10/hpf) (Absent); Urine Squamous Epithelial Cell Present (Absent); Urine White Blood Cell 2+(11-20/hpf) (Absent)
[2021-07-14 11:08] LABS: Troponin I 3.54 ng/mL (<0.03)
[2021-07-14 11:41] LABS: Phosphorus 6.7 mg/dL (2.5-5.0)
[2021-07-14 15:51] LABS: PCO2 Arterial 52 mmHg (35-45); PO2 Arterial 63 mmHg (80-100)
[2021-07-14 16:51] LABS: Hematocrit 41 % (35-47); Hemoglobin 13.5 g/dL (12.0-16.0); Mean Corpuscular HGB Conc 33 g/dL (31-36); Mean Corpuscular Hemoglobin 31 pg (27-31); Mean Corpuscular Volume 92 fL (80-97); Mean Platelet Volume 8.6 fL (7.4-10.4); Platelet Count 132 10^3/uL (150-450); Red Blood Count 4.39 10^6 /uL (3.70-4.87); Red Cell Distribution Width 14 % (10-15); White Blood Count 30.6 10^3/uL (3.5-10.8)
[2021-07-14] MEDS ORDERED: Propofol 10 mg/ml 100 ML BTL 100 ML IV SCH (17:01)
[2021-07-14 17:10] LABS: Albumin 3.1 g/dL (3.2-5.2); Albumin/Globulin Ratio 1.5 (1-3); Alkaline Phosphatase 144 U/L (35-149); Blood Urea Nitrogen 53 mg/dL (6-24); CO2 Carbon Dioxide 27 mmol/L (22-32); Calcium 7.1 mg/dL (8.6-10.3); Chloride 109 mmol/L (101-111); Globulin 2.1 g/dL (2-4); Glucose 150 mg/dL (70-100); Potassium 4.7 mmol/L (3.5-5.0); Total Protein 5.2 g/dL (6.4-8.9)
[2021-07-14 17:12] LABS: Anion Gap 12 mmol/L (2-11); Sodium 148 mmol/L (135-145)
[2021-07-14 17:18] LABS: ABS Lymphocytes 1.5 10^3/ul (1.0-4.8); ABS Monocytes 1.4 10^3/ul (0-0.8); ABS Neutrophils 27.6 10^3/ul (1.5-7.7); Eosinophil % 0.1 %; Lymphocyte % 5.1 %; Nucleated Red Blood Cells % 0.1
[2021-07-14 17:26] LABS: ALT 2444 U/L (7-52); AST 3346 U/L (13-39)
[2021-07-14 17:28] LABS: Troponin I 4.21 ng/mL (<0.03)
[2021-07-14] MEDS: cefTRIAXone 1 gm/50 mL NS BAG 1 GM/50 ML BAG IVPB SCH (19:14)
[2021-07-14 22:27] LABS: Troponin I 3.92 ng/mL (<0.03)
[2021-07-15] MEDS: Chlorhexidine MOUTHWASH 0.12% 15 ML UDC TOPICAL SCH ×2 (01:30→05:07)
[2021-07-15 04:09] LABS: Hematocrit 36 % (35-47); Hemoglobin 12.4 g/dL (12.0-16.0); Mean Corpuscular HGB Conc 35 g/dL (31-36); Mean Corpuscular Hemoglobin 31 pg (27-31); Mean Corpuscular Volume 91 fL (80-97); Mean Platelet Volume 9.1 fL (7.4-10.4); Platelet Count 107 10^3/uL (150-450); Red Blood Count 3.95 10^6 /uL (3.70-4.87); Red Cell Distribution Width 14 % (10-15); White Blood Count 24.3 10^3/uL (3.5-10.8)
[2021-07-15] MEDS: Levothyroxine 100 MCG/5 ML VIAL IV SCH (04:10)
[2021-07-15] MEDS: Hydrocortisone INJ 100 MG/2ML 2 ML VIAL IV SCH ×2 (04:10→17:45)
[2021-07-15] MEDS: Lactulose 30 ml UDC NG TUBE SCH ×2 (04:10→12:52)
[2021-07-15 04:25] LABS: Albumin 2.7 g/dL (3.2-5.2); Albumin/Globulin Ratio 1.3 (1-3); Calcium 7.2 mg/dL (8.6-10.3); Globulin 2.1 g/dL (2-4); Magnesium 1.9 mg/dL (1.9-2.7); Phosphorus 3.9 mg/dL (2.5-5.0); Potassium 4.3 mmol/L (3.5-5.0); Total Bilirubin 0.6 mg/dL (0.2-1.0); Total Protein 4.8 g/dL (6.4-8.9)
[2021-07-15 04:37] LABS: INR 1.5 (0.86-1.15)
[2021-07-15 05:23] LABS: ABS Basophils 0.1 10^3/ul (0-0.2); ABS Lymphocytes 1.3 10^3/ul (1.0-4.8); ABS Monocytes 1.3 10^3/ul (0-0.8); ABS Neutrophils 21.7 10^3/ul (1.5-7.7); Eosinophil % 0.1 %; Lymphocyte % 5.2 %; Nucleated Red Blood Cells % 0.1; RBC Morphology Normal (Normal); Smudge Cells Present
[2021-07-15] MEDS ORDERED: fentaNYL 100 mcg/2 ml 50 MCG/ML VIAL ONE (07:38)
[2021-07-15] MEDS ORDERED: fentaNYL 100 mcg/2 ml 50 MCG/ML VIAL IV SLOW PU ONE (08:19)
[2021-07-15] MEDS: metroNIDAZOLE IV 500 MG/100ML 500 MG/100 ML BAG IVPB SCH (08:19)
[2021-07-15] MEDS ORDERED: Propofol 10 mg/ml 100 ML BTL 100 ML IV SCH (08:19)
[2021-07-15] MEDS: Dexmedetomidine 1,000 MCG in NS 0.9% 250 ml 240 ML IV SCH (10:27)
[2021-07-15] MEDS ORDERED: Lactated Ringers 500 ml BAG 500 ML IV ONE (11:57)
[2021-07-15] MEDS ORDERED: NORMOSOL-R pH 7.4 1000 mL BAG 500 ML IV ONE (12:00)
[2021-07-15] MEDS ORDERED: Norepinephrine IV 4 MG in NS 0.9% 250 ml 246 ML IVPB SCH (12:15)
[2021-07-15] MEDS ORDERED: Perflutren Lipid Microsphere 3 ML VIAL ONE (12:24)
[2021-07-15] MEDS: cefTRIAXone 1 gm/50 mL NS BAG 1 GM/50 ML BAG IVPB SCH (22:09)
[2021-07-15] MEDS: Pantoprazole VIAL 40 MG VIAL IV SCH (22:40)
[2021-07-15] MEDS: Azithromycin 500 mg/250 ml NS 500 MG/250 ML BAG IVPB SCH (22:56)
[2021-07-16] MEDS: Hydrocortisone INJ 100 MG/2ML 2 ML VIAL IV SCH (05:46)
[2021-07-16] MEDS: Levothyroxine 100 MCG/5 ML VIAL IV SCH (05:48)
[2021-07-16] MEDS: Dexmedetomidine 1,000 MCG in NS 0.9% 250 ml 240 ML IV SCH (06:59)
[2021-07-16 07:42] LABS: INR 1.28 (0.86-1.15)
[2021-07-16 07:53] LABS: Albumin 2.8 g/dL (3.2-5.2); Albumin/Globulin Ratio 1.2 (1-3); Calcium 7.7 mg/dL (8.6-10.3); Globulin 2.4 g/dL (2-4); Magnesium 2.3 mg/dL (1.9-2.7); Phosphorus 6.1 mg/dL (2.5-5.0); Potassium 4.6 mmol/L (3.5-5.0); Total Bilirubin 0.5 mg/dL (0.2-1.0); Total Protein 5.2 g/dL (6.4-8.9)
[2021-07-16 08:05] LABS: Hematocrit 36 % (35-47); Hemoglobin 12.1 g/dL (12.0-16.0); Mean Corpuscular HGB Conc 34 g/dL (31-36); Mean Corpuscular Hemoglobin 31 pg (27-31); Mean Corpuscular Volume 92 fL (80-97); Mean Platelet Volume 9.2 fL (7.4-10.4); Platelet Count 73 10^3/uL (150-450); Red Blood Count 3.86 10^6 /uL (3.70-4.87); Red Cell Distribution Width 14 % (10-15); White Blood Count 23.8 10^3/uL (3.5-10.8)
[2021-07-16] MEDS ORDERED: Hydrocortisone INJ 100 MG/2ML 2 ML VIAL IV SCH (09:00)
[2021-07-16] MEDS ORDERED: fentaNYL 100 mcg/2 ml 50 MCG/ML VIAL IV SLOW PU ONE (10:46)
[2021-07-16] MEDS ORDERED: Midazolam 2 mg/2 ml VIAL 1 mg/ml 2 ml VIAL (2 mg) ONE (10:49)
[2021-07-16] MEDS ORDERED: fentaNYL 100 mcg/2 ml 50 MCG/ML VIAL ONE (10:50)
[2021-07-16] MEDS ORDERED: Heparin 5000 UNITS/ML 1 mL VIAL ONE (11:06)
[2021-07-16] MEDS ORDERED: Midazolam 2 mg/2 ml VIAL 1 mg/ml 2 ml VIAL (2 mg) IV SLOW PU ONE (11:09)
[2021-07-16] MEDS ORDERED: hydrALAZINE 20 mg/ml 1 ML Vial IV ONE (13:09)
[2021-07-16] MEDS ORDERED: hydrALAZINE 20 mg/ml 1 ML Vial IV IV SLOW PU PRN (13:26)
[2021-07-16] MEDS ORDERED: Haloperidol 5 mg/ml SDV IV/IM 5 MG/ML AMP IV SLOW PU ONE (15:11)
[2021-07-16] MEDS ORDERED: Haloperidol 5 mg/ml SDV IV/IM 5 MG/ML AMP ONE (15:11)
[2021-07-16] MEDS ORDERED: Lorazepam PYXIS KEY PRN (17:17)
[2021-07-16] MEDS ORDERED: LORazepam 2 mg VIAL 1 ml ONE (17:18)
[2021-07-16] MEDS ORDERED: Lorazepam PYXIS KEY ONE (17:18)
[2021-07-16] MEDS: LORazepam 2 mg VIAL 1 ml IV PUSH PRN (17:30)
[2021-07-16] MEDS: Pantoprazole VIAL 40 MG VIAL IV SCH (21:39)
[2021-07-16] MEDS: Azithromycin 500 mg/250 ml NS 500 MG/250 ML BAG IVPB SCH (21:39)
[2021-07-16] MEDS: cefTRIAXone 1 gm/50 mL NS BAG 1 GM/50 ML BAG IVPB SCH (21:39)
[2021-07-17] MEDS: Haloperidol 5 mg/ml SDV IV/IM 5 MG/ML AMP IV SLOW PU PRN ×2 (01:35→08:09)
[2021-07-17] MEDS: LORazepam 2 mg VIAL 1 ml IV PUSH PRN ×3 (03:04→22:49)
[2021-07-17] MEDS: Levothyroxine 100 MCG/5 ML VIAL IV SCH (06:26)
[2021-07-17 06:46] LABS: Hematocrit 37 % (35-47); Hemoglobin 12.7 g/dL (12.0-16.0); Mean Corpuscular HGB Conc 35 g/dL (31-36); Mean Corpuscular Hemoglobin 31 pg (27-31); Mean Corpuscular Volume 90 fL (80-97); Mean Platelet Volume 9.7 fL (7.4-10.4); Platelet Count 90 10^3/uL (150-450); Red Blood Count 4.07 10^6 /uL (3.70-4.87); Red Cell Distribution Width 14 % (10-15); White Blood Count 26.6 10^3/uL (3.5-10.8)
[2021-07-17 06:55] LABS: Albumin 2.7 g/dL (3.2-5.2); Calcium 7.8 mg/dL (8.6-10.3); Globulin 2.6 g/dL (2-4); Magnesium 2.6 mg/dL (1.9-2.7); Phosphorus 6.7 mg/dL (2.5-5.0); Potassium 4.6 mmol/L (3.5-5.0); Total Bilirubin 0.5 mg/dL (0.2-1.0); Total Protein 5.3 g/dL (6.4-8.9)
[2021-07-17 07:40] LABS: ABS Basophils 0.1 10^3/ul (0-0.2); ABS Lymphocytes 1.6 10^3/ul (1.0-4.8); ABS Monocytes 1.7 10^3/ul (0-0.8); ABS Neutrophils 23.3 10^3/ul (1.5-7.7); Eosinophil % 0.1 %; Nucleated Red Blood Cells % 0.1; RBC Morphology Normal (Normal)
[2021-07-17] MEDS: Heparin 1,000 UNIT/ML 10 ml (10,000 UNITS) CATHLAB/DIALYSIS DIALYSIS SCH ×4 (08:40→12:47)
[2021-07-17] MEDS ORDERED: fentaNYL 100 mcg/2 ml 50 MCG/ML VIAL IV SLOW PU ONE (08:46)
[2021-07-17] MEDS ORDERED: fentaNYL 100 mcg/2 ml 50 MCG/ML VIAL ONE (08:48)
[2021-07-17] MEDS ORDERED: Norepinephrine 16MCG/ML IVPRE 4,000 MCG/250 ML BAG IV ONE (09:59)
[2021-07-17] MEDS ORDERED: Naloxone 0.4 mg VIAL 0.4 mg/ml 1 ml VIAL ONE (10:03)
[2021-07-17] MEDS ORDERED: Albuterol/Ipratropium NEB.SOL (2.5/0.5 MG) 3 ML NEB.SOLN ONE (10:06)
[2021-07-17] MEDS ORDERED: Rocuronium 50 mg VIAL 10 mg/ml 5 ml VIAL (50 mg) ONE (10:10)
[2021-07-17] MEDS ORDERED: Succinylcholine 200 mg VIAL 20 mg/ml 10 ml VIAL (200 mg) ONE (10:10)
[2021-07-17] MEDS ORDERED: Propofol 10 MG/ML 20 ML BTL ONE (10:15)
[2021-07-17] MEDS ORDERED: Propofol 10 mg/ml 100 ML BTL 100 ML ONE (10:19)
[2021-07-17] MEDS ORDERED: Heparin 5000 UNITS/ML 1 mL VIAL SUBCUT SCH (11:00)
[2021-07-17] MEDS: Propofol 10 mg/ml 100 ML BTL 100 ML IV SCH ×3 (12:05→22:33)
[2021-07-17] MEDS: Norepinephrine 16MCG/ML IVPRE 4,000 MCG/250 ML BAG IV SCH ×4 (12:45→23:14)
[2021-07-17] MEDS: fentaNYL 100 mcg/2 ml 50 MCG/ML VIAL IV SLOW PU PRN ×4 (12:45→23:04)
[2021-07-17 15:10] LABS: Hematocrit 45 % (35-47); Hemoglobin 15.6 g/dL (12.0-16.0); Mean Corpuscular HGB Conc 35 g/dL (31-36); Mean Corpuscular Hemoglobin 31 pg (27-31); Mean Corpuscular Volume 91 fL (80-97); Mean Platelet Volume 9.9 fL (7.4-10.4); Platelet Count 122 10^3/uL (150-450); Red Blood Count 4.96 10^6 /uL (3.70-4.87); Red Cell Distribution Width 14 % (10-15); White Blood Count 39.6 10^3/uL (3.5-10.8)
[2021-07-17 15:51] LABS: INR 1.04 (0.86-1.15)
[2021-07-17] MEDS: Chlorhexidine MOUTHWASH 0.12% 15 ML UDC TOPICAL SCH ×2 (16:51→20:28)
[2021-07-17] MEDS: Pantoprazole VIAL 40 MG VIAL IV SCH (20:29)
[2021-07-17] MEDS: cefTRIAXone 1 gm/50 mL NS BAG 1 GM/50 ML BAG IVPB SCH (20:42)
[2021-07-17] MEDS: Azithromycin 500 mg/250 ml NS 500 MG/250 ML BAG IVPB SCH (21:58)
[2021-07-18] MEDS: Chlorhexidine MOUTHWASH 0.12% 15 ML UDC TOPICAL SCH ×6 (00:16→21:53)
[2021-07-18] MEDS: Propofol 10 mg/ml 100 ML BTL 100 ML IV SCH ×5 (02:47→23:21)
[2021-07-18] MEDS: fentaNYL 100 mcg/2 ml 50 MCG/ML VIAL IV SLOW PU PRN (03:58)
[2021-07-18 04:47] LABS: INR 1.08 (0.86-1.15)
[2021-07-18 04:48] LABS: Hematocrit 35 % (35-47); Hemoglobin 12.2 g/dL (12.0-16.0); Mean Corpuscular HGB Conc 35 g/dL (31-36); Mean Corpuscular Hemoglobin 32 pg (27-31); Mean Corpuscular Volume 91 fL (80-97); Platelet Count 96 10^3/uL (150-450); Red Cell Distribution Width 13 % (10-15); White Blood Count 23.6 10^3/uL (3.5-10.8)
[2021-07-18 04:58] LABS: Calcium 7.5 mg/dL (8.6-10.3); Magnesium 2.2 mg/dL (1.9-2.7)
[2021-07-18] MEDS: Levothyroxine 100 MCG/5 ML VIAL IV SCH (05:28)
[2021-07-18] MEDS: LORazepam 2 mg VIAL 1 ml IV PUSH PRN (05:32)
[2021-07-18 05:35] LABS: Phosphorus 5.4 mg/dL (2.5-5.0); Potassium 4.2 mmol/L (3.5-5.0)
[2021-07-18] MEDS: Norepinephrine 16MCG/ML IVPRE 4,000 MCG/250 ML BAG IV SCH (05:36)
[2021-07-18 08:23] LABS: Fibrinogen 342.7 mg/dL (110.8-404.3); INR 1.08 (0.86-1.15)
[2021-07-18 09:27] LABS: Hepatitis B Surface Antigen Nonreactive (Nonreactive)
[2021-07-18 09:44] LABS: Hepatitis B Surface Ab Not Immune (Immune)
[2021-07-18] MEDS: Heparin 1,000 UNIT/ML 10 ml (10,000 UNITS) CATHLAB/DIALYSIS DIALYSIS SCH (11:02)
[2021-07-18] MEDS: cefTRIAXone 1 gm/50 mL NS BAG 1 GM/50 ML BAG IVPB SCH (21:53)
[2021-07-18] MEDS: Pantoprazole VIAL 40 MG VIAL IV SCH (21:53)
[2021-07-19] MEDS: Chlorhexidine MOUTHWASH 0.12% 15 ML UDC TOPICAL SCH ×6 (02:05→20:28)
[2021-07-19] MEDS: Levothyroxine 100 MCG/5 ML VIAL IV SCH (05:21)
[2021-07-19 06:22] LABS: Calcium 7.4 mg/dL (8.6-10.3); Magnesium 2.1 mg/dL (1.9-2.7); Potassium 3.4 mmol/L (3.5-5.0)
[2021-07-19 06:26] LABS: ABS Basophils 0.1 10^3/ul (0-0.2); ABS Eosinophils 0.6 10^3/ul (0-0.6); ABS Monocytes 1.5 10^3/ul (0-0.8); ABS Neutrophils 12.2 10^3/ul (1.5-7.7); Eosinophil % 3.6 %; Hematocrit 31 % (35-47); Hemoglobin 10.7 g/dL (12.0-16.0); Lymphocyte % 17.1 %; Mean Corpuscular HGB Conc 35 g/dL (31-36); Mean Corpuscular Hemoglobin 32 pg (27-31); Mean Corpuscular Volume 92 fL (80-97); Mean Platelet Volume 9.8 fL (7.4-10.4); Nucleated Red Blood Cells % 0.2; Platelet Count 67 10^3/uL (150-450); Red Blood Count 3.35 10^6 /uL (3.70-4.87); Red Cell Distribution Width 14 % (10-15); White Blood Count 17.4 10^3/uL (3.5-10.8)
[2021-07-19 06:28] LABS: Phosphorus 3.6 mg/dL (2.5-5.0)
[2021-07-19] MEDS: Propofol 10 mg/ml 100 ML BTL 100 ML IV SCH ×2 (08:04→11:39)
[2021-07-19] MEDS: Norepinephrine 16MCG/ML IVPRE 4,000 MCG/250 ML BAG IV SCH (10:19)
[2021-07-19] MEDS: Heparin 1,000 UNIT/ML 10 ml (10,000 UNITS) CATHLAB/DIALYSIS DIALYSIS SCH (10:57)
[2021-07-19] MEDS: fentaNYL INFUSION 50 mcg/mL VL 2,500 MCG/50 ML VIAL IV SCH (11:46)
[2021-07-19] MEDS: LORazepam 2 mg VIAL 1 ml IV PUSH PRN (19:29)
[2021-07-19] MEDS: Pantoprazole VIAL 40 MG VIAL IV SCH (20:28)
[2021-07-19] MEDS: cefTRIAXone 1 gm/50 mL NS BAG 1 GM/50 ML BAG IVPB SCH (20:29)
[2021-07-19] MEDS ORDERED: fentaNYL 100 mcg/2 ml 50 MCG/ML VIAL IV SLOW PU PRN (21:23)
[2021-07-20] MEDS: Chlorhexidine MOUTHWASH 0.12% 15 ML UDC TOPICAL SCH ×4 (00:52→11:08)
[2021-07-20] MEDS: Levothyroxine 100 MCG/5 ML VIAL IV SCH (06:27)
[2021-07-20] MEDS: fentaNYL INFUSION 50 mcg/mL VL 2,500 MCG/50 ML VIAL IV SCH (06:32)
[2021-07-20 07:51] LABS: Hematocrit 32 % (35-47); Hemoglobin 11.1 g/dL (12.0-16.0); Mean Corpuscular HGB Conc 35 g/dL (31-36); Mean Corpuscular Hemoglobin 32 pg (27-31); Mean Corpuscular Volume 91 fL (80-97); Mean Platelet Volume 9.4 fL (7.4-10.4); Platelet Count 78 10^3/uL (150-450); Red Blood Count 3.52 10^6 /uL (3.70-4.87); Red Cell Distribution Width 13 % (10-15); White Blood Count 16.5 10^3/uL (3.5-10.8)
[2021-07-20 08:03] LABS: Calcium 7.7 mg/dL (8.6-10.3); Magnesium 1.9 mg/dL (1.9-2.7); Phosphorus 3.4 mg/dL (2.5-5.0); Potassium 3.4 mmol/L (3.5-5.0)
[2021-07-20 08:34] LABS: RBC Morphology Normal (Normal)
[2021-07-20 08:35] LABS: ABS Basophils 0.1 10^3/ul (0-0.2); ABS Eosinophils 0.8 10^3/ul (0-0.6); ABS Lymphocytes 3.3 10^3/ul (1.0-4.8); ABS Monocytes 1.8 10^3/ul (0-0.8); ABS Neutrophils 10.5 10^3/ul (1.5-7.7); Eosinophil % 4.7 %; Lymphocyte % 19.9 %; Nucleated Red Blood Cells % 0.1
[2021-07-20] MEDS: Heparin 1,000 UNIT/ML 10 ml (10,000 UNITS) CATHLAB/DIALYSIS DIALYSIS SCH (11:04)
[2021-07-20] MEDS: cefTRIAXone 1 gm/50 mL NS BAG 1 GM/50 ML BAG IVPB SCH (19:49)
[2021-07-20] MEDS: Pantoprazole VIAL 40 MG VIAL IV SCH (19:49)
[2021-07-21] MEDS: LORazepam 2 mg VIAL 1 ml IV PUSH PRN (04:33)
[2021-07-21 04:37] LABS: Hematocrit 32 % (35-47); Mean Corpuscular HGB Conc 34 g/dL (31-36); Mean Corpuscular Hemoglobin 31 pg (27-31); Mean Corpuscular Volume 90 fL (80-97); Mean Platelet Volume 9.2 fL (7.4-10.4); Platelet Count 100 10^3/uL (150-450); Red Blood Count 3.58 10^6 /uL (3.70-4.87); Red Cell Distribution Width 13 % (10-15); White Blood Count 16.5 10^3/uL (3.5-10.8)
[2021-07-21 04:56] LABS: Calcium 7.7 mg/dL (8.6-10.3); Magnesium 1.9 mg/dL (1.9-2.7); Phosphorus 3.6 mg/dL (2.5-5.0); Potassium 3.6 mmol/L (3.5-5.0)
[2021-07-21 05:04] LABS: ABS Basophils 0.1 10^3/ul (0-0.2); ABS Eosinophils 0.8 10^3/ul (0-0.6); ABS Lymphocytes 2.6 10^3/ul (1.0-4.8); ABS Monocytes 2.3 10^3/ul (0-0.8); ABS Neutrophils 10.7 10^3/ul (1.5-7.7); Eosinophil % 4.7 %; Lymphocyte % 15.9 %
[2021-07-21] MEDS: Heparin 5000 UNITS/ML 1 mL VIAL SUBCUT SCH (20:20)
[2021-07-21] MEDS: Pantoprazole VIAL 40 MG VIAL IV SCH (20:20)
[2021-07-22 04:58] LABS: Calcium 7.8 mg/dL (8.6-10.3); Potassium 3.5 mmol/L (3.5-5.0)
[2021-07-22] MEDS: LORazepam 2 mg VIAL 1 ml IV PUSH PRN (10:03)
[2021-07-22] MEDS: Heparin 5000 UNITS/ML 1 mL VIAL SUBCUT SCH ×2 (10:45→20:15)
[2021-07-22] MEDS: Pantoprazole VIAL 40 MG VIAL IV SCH (20:15)
[2021-07-23 05:24] LABS: Hematocrit 30 % (35-47); Hemoglobin 10.4 g/dL (12.0-16.0); Mean Corpuscular HGB Conc 34 g/dL (31-36); Mean Corpuscular Hemoglobin 31 pg (27-31); Mean Corpuscular Volume 89 fL (80-97); Mean Platelet Volume 8.7 fL (7.4-10.4); Platelet Count 168 10^3/uL (150-450); Red Cell Distribution Width 14 % (10-15); White Blood Count 18.3 10^3/uL (3.5-10.8)
[2021-07-23 05:43] LABS: Calcium 7.6 mg/dL (8.6-10.3); Potassium 3.7 mmol/L (3.5-5.0)
[2021-07-23 06:01] LABS: ABS Basophils 0.1 10^3/ul (0-0.2); ABS Eosinophils 0.5 10^3/ul (0-0.6); ABS Monocytes 2.6 10^3/ul (0-0.8); Lymphocyte % 16.6 %
[2021-07-23] MEDS: Heparin 5000 UNITS/ML 1 mL VIAL SUBCUT SCH ×2 (09:42→21:51)
[2021-07-23 10:12] LABS: Albumin 2.4 g/dL (3.2-5.2); Direct Bilirubin 0.1 mg/dL (0.03-0.18); Globulin 2.4 g/dL (2-4); Indirect Bilirubin 0.3 mg/dL (0.3-1.0); Total Bilirubin 0.4 mg/dL (0.2-1.0); Total Protein 4.8 g/dL (6.4-8.9)
[2021-07-23] MEDS: Heparin 1,000 UNIT/ML 10 ml (10,000 UNITS) CATHLAB/DIALYSIS DIALYSIS SCH (10:43)
[2021-07-23] MEDS: Pantoprazole VIAL 40 MG VIAL IV SCH (21:51)
[2021-07-24 05:57] LABS: Hematocrit 28 % (35-47); Hemoglobin 9.5 g/dL (12.0-16.0); Mean Corpuscular HGB Conc 34 g/dL (31-36); Mean Corpuscular Hemoglobin 31 pg (27-31); Mean Corpuscular Volume 91 fL (80-97); Mean Platelet Volume 8.9 fL (7.4-10.4); Platelet Count 175 10^3/uL (150-450); Red Blood Count 3.03 10^6 /uL (3.70-4.87); Red Cell Distribution Width 14 % (10-15); White Blood Count 18.8 10^3/uL (3.5-10.8)
[2021-07-24 06:14] LABS: Calcium 7.6 mg/dL (8.6-10.3); Magnesium 1.9 mg/dL (1.9-2.7); Phosphorus 4.7 mg/dL (2.5-5.0); Potassium 3.7 mmol/L (3.5-5.0)
[2021-07-24] MEDS: Heparin 5000 UNITS/ML 1 mL VIAL SUBCUT SCH ×2 (08:27→20:51)
[2021-07-24] MEDS: Pantoprazole VIAL 40 MG VIAL IV SCH (20:51)
[2021-07-25 06:26] LABS: Calcium 7.9 mg/dL (8.6-10.3); Potassium 4.3 mmol/L (3.5-5.0)
[2021-07-25] MEDS: Heparin 5000 UNITS/ML 1 mL VIAL SUBCUT SCH ×2 (07:59→20:15)
[2021-07-25] MEDS: Heparin 1,000 UNIT/ML 10 ml (10,000 UNITS) CATHLAB/DIALYSIS DIALYSIS SCH ×4 (12:44→17:06)
[2021-07-25] MEDS: Pantoprazole VIAL 40 MG VIAL IV SCH (20:20)
[2021-07-26] MEDS: Heparin 5000 UNITS/ML 1 mL VIAL SUBCUT SCH ×2 (08:20→21:12)
[2021-07-26] MEDS: Nicotine PATCH 14 MG/24 HR PATCH TRANSDERM SCH (08:20)
[2021-07-26 08:55] LABS: Hematocrit 29 % (35-47); Hemoglobin 9.7 g/dL (12.0-16.0); Mean Corpuscular HGB Conc 34 g/dL (31-36); Mean Corpuscular Hemoglobin 31 pg (27-31); Mean Corpuscular Volume 92 fL (80-97); Mean Platelet Volume 8.5 fL (7.4-10.4); Platelet Count 273 10^3/uL (150-450); Red Cell Distribution Width 14 % (10-15); White Blood Count 15.4 10^3/uL (3.5-10.8)
[2021-07-26 09:12] LABS: Anion Gap 9 mmol/L (2-11); Blood Urea Nitrogen 40 mg/dL (6-24); CO2 Carbon Dioxide 28 mmol/L (22-32); Calcium 8.4 mg/dL (8.6-10.3); Chloride 100 mmol/L (101-111); Glucose 89 mg/dL (70-100); Sodium 137 mmol/L (135-145)
[2021-07-26] MEDS ORDERED: Regadenoson 0.4 MG/5 ML SYRINGE ONE (09:21)
[2021-07-26 09:30] LABS: ABS Basophils 0.2 10^3/ul (0-0.2); ABS Eosinophils 0.2 10^3/ul (0-0.6); ABS Lymphocytes 2.4 10^3/ul (1.0-4.8); ABS Monocytes 1.7 10^3/ul (0-0.8); Eosinophil % 1.1 %; Lymphocyte % 15.3 %
[2021-07-26 13:04] LABS: Cholesterol 192 mg/dL; HDL Cholesterol 31.1 mg/dL; LDL Cholesterol 115 mg/dL; Triglycerides 232 mg/dL
[2021-07-26 16:24] LABS: Troponin I 0.04 ng/mL (<0.03)
[2021-07-26 16:27] LABS: Creatine Kinase 140 U/L (10-223)
[2021-07-26] MEDS: Nicotine GUM 2MG FRUIT FLAVOR PO PRN (18:09)
[2021-07-27 06:53] LABS: Hematocrit 28 % (35-47); Hemoglobin 9.5 g/dL (12.0-16.0); Mean Corpuscular HGB Conc 34 g/dL (31-36); Mean Corpuscular Hemoglobin 31 pg (27-31); Mean Corpuscular Volume 93 fL (80-97); Mean Platelet Volume 8.7 fL (7.4-10.4); Platelet Count 294 10^3/uL (150-450); Red Blood Count 3.01 10^6 /uL (3.70-4.87); Red Cell Distribution Width 14 % (10-15); White Blood Count 14.4 10^3/uL (3.5-10.8)
[2021-07-27 06:59] LABS: ABS Basophils 0.1 10^3/ul (0-0.2); ABS Eosinophils 0.2 10^3/ul (0-0.6); ABS Lymphocytes 2.3 10^3/ul (1.0-4.8); ABS Monocytes 1.7 10^3/ul (0-0.8); ABS Neutrophils 10.1 10^3/ul (1.5-7.7); Eosinophil % 1.1 %; Lymphocyte % 15.7 %
[2021-07-27 07:09] LABS: Calcium 8.2 mg/dL (8.6-10.3); Globulin 2.9 g/dL (2-4); Potassium 4.3 mmol/L (3.5-5.0); Total Bilirubin 0.4 mg/dL (0.2-1.0); Total Protein 5.9 g/dL (6.4-8.9)
[2021-07-27] MEDS: Nicotine PATCH 14 MG/24 HR PATCH TRANSDERM SCH (09:37)
[2021-07-27] MEDS: Heparin 5000 UNITS/ML 1 mL VIAL SUBCUT SCH ×2 (09:38→21:07)
[2021-07-27] MEDS ORDERED: Midazolam 5 mg/5 ml VIAL 1 mg/ml 5 ml VIAL (5 mg) ONE (11:07)
[2021-07-27] MEDS ORDERED: fentaNYL 100 mcg/2 ml 50 MCG/ML VIAL ONE (11:07)
[2021-07-27] MEDS ORDERED: Lidocaine 1% VIAL 10 MG/ML VIAL ONE (11:17)
[2021-07-27] MEDS: Heparin 1,000 UNIT/ML 10 ml (10,000 UNITS) CATHLAB/DIALYSIS DIALYSIS SCH ×4 (12:48→15:46)
[2021-07-27] MEDS ORDERED: Clindamycin 600 MG/D5W BAG IV ONE (13:00)
[2021-07-28] MEDS: Heparin 5000 UNITS/ML 1 mL VIAL SUBCUT SCH ×2 (09:07→20:09)
[2021-07-28] MEDS: Nicotine PATCH 14 MG/24 HR PATCH TRANSDERM SCH (09:07)
[2021-07-29 06:56] LABS: Hematocrit 27 % (35-47); Hemoglobin 9.2 g/dL (12.0-16.0); Mean Corpuscular HGB Conc 34 g/dL (31-36); Mean Corpuscular Hemoglobin 32 pg (27-31); Mean Corpuscular Volume 93 fL (80-97); Mean Platelet Volume 7.9 fL (7.4-10.4); Platelet Count 312 10^3/uL (150-450); Red Blood Count 2.91 10^6 /uL (3.70-4.87); Red Cell Distribution Width 14 % (10-15); White Blood Count 12.3 10^3/uL (3.5-10.8)
[2021-07-29 07:00] LABS: ABS Basophils 0.2 10^3/ul (0-0.2); ABS Eosinophils 0.2 10^3/ul (0-0.6); ABS Lymphocytes 2.1 10^3/ul (1.0-4.8); ABS Monocytes 1.8 10^3/ul (0-0.8); Eosinophil % 1.2 %; Lymphocyte % 17.4 %
[2021-07-29 07:13] LABS: C Reactive Protein 8.83 mg/L (<8.01); Calcium 8.5 mg/dL (8.6-10.3); Potassium 4.3 mmol/L (3.5-5.0)
[2021-07-29] MEDS: Nicotine GUM 2MG FRUIT FLAVOR PO PRN (08:35)
[2021-07-29] MEDS: Nicotine PATCH 14 MG/24 HR PATCH TRANSDERM SCH (08:35)
[2021-07-29] MEDS: Heparin 5000 UNITS/ML 1 mL VIAL SUBCUT SCH ×2 (11:16→20:37)
[2021-07-30 07:24] LABS: ABS Basophils 0.3 10^3/ul (0-0.2); ABS Eosinophils 0.1 10^3/ul (0-0.6); ABS Lymphocytes 2.7 10^3/ul (1.0-4.8); ABS Monocytes 1.4 10^3/ul (0-0.8); ABS Neutrophils 5.9 10^3/ul (1.5-7.7); Eosinophil % 1.4 %; Hematocrit 27 % (35-47); Hemoglobin 9.2 g/dL (12.0-16.0); Lymphocyte % 25.9 %; Mean Corpuscular HGB Conc 35 g/dL (31-36); Mean Corpuscular Hemoglobin 32 pg (27-31); Mean Corpuscular Volume 93 fL (80-97); Mean Platelet Volume 8.3 fL (7.4-10.4); Platelet Count 316 10^3/uL (150-450); Red Blood Count 2.83 10^6 /uL (3.70-4.87); Red Cell Distribution Width 14 % (10-15); White Blood Count 10.4 10^3/uL (3.5-10.8)
[2021-07-30 07:41] LABS: Calcium 8.6 mg/dL (8.6-10.3); Potassium 4.4 mmol/L (3.5-5.0)
[2021-07-30] MEDS: Nicotine PATCH 14 MG/24 HR PATCH TRANSDERM SCH (07:57)
[2021-07-30] MEDS: Heparin 5000 UNITS/ML 1 mL VIAL SUBCUT SCH ×2 (07:57→19:55)
[2021-07-30] MEDS: Heparin 1,000 UNIT/ML 10 ml (10,000 UNITS) CATHLAB/DIALYSIS DIALYSIS SCH ×4 (15:20→19:08)
[2021-07-30] MEDS ORDERED: Calcium Polycarbophil 625mg TB PO SCH (21:00)
[2021-07-31 08:21] LABS: ABS Basophils 0.2 10^3/ul (0-0.2); ABS Eosinophils 0.1 10^3/ul (0-0.6); ABS Lymphocytes 2.5 10^3/ul (1.0-4.8); ABS Monocytes 1.2 10^3/ul (0-0.8); ABS Neutrophils 5.6 10^3/ul (1.5-7.7); Eosinophil % 1.5 %; Hematocrit 29 % (35-47); Hemoglobin 9.8 g/dL (12.0-16.0); Lymphocyte % 25.6 %; Mean Corpuscular HGB Conc 34 g/dL (31-36); Mean Corpuscular Hemoglobin 32 pg (27-31); Mean Corpuscular Volume 93 fL (80-97); Mean Platelet Volume 8.2 fL (7.4-10.4); Platelet Count 328 10^3/uL (150-450); Red Cell Distribution Width 14 % (10-15); White Blood Count 9.7 10^3/uL (3.5-10.8)
[2021-07-31 11:44] VITALS: BP 129/77
== END 2021-07-31 15:10 | disposition home or self-care (01) | DRG 196 ==
LOC: ED 18:13 → SUATTDRO 21:18 → ICU 21:18 → MEDTELE 07-24 01:54
PROVIDERS: ADMIT Internal Medicine; ATTEND Student in an Organized Health Care Education/Training Program